=== PATIENT | female | born 1950 | race Caucasian/White ===

== ENCOUNTER → 2020-11-14 14:57 | Outpatient (CLI) | payer MEDICARE, SELFPAY ==
--- NOTE | 2020-11-14 15:04 | DI.RAD.S_ITS ---
PROCEDURE: XR LUMBAR SPINE MIN 4V COMPARISON: None. INDICATIONS: ACUTE LOW BACK PAIN FINDINGS: AP, lateral, and bilateral oblique views of the lumbar spine were performed. There is multilevel lumbar spondylosis. The aorta has atherosclerotic calcifications. The lower lumbar spine has facet arthrosis there is no vertebral body height loss. There is rightward curvature of the lumbar spine. T12-L1, L1-2, and L2-3 have mild disc space narrowing and endplate degenerative changes. IMPRESSION: 1. No acute abnormality of the lumbar spine. 2. Multilevel lumbar spondylosis. 3. Multilevel lumbar disc disease. Dictated by: Houston Brooks M.D. on 11/14/2020 at 15:41 Approved by: Houston Brooks M.D. on 11/14/2020 at 15:43
== END ==
PROVIDERS: Referring Provider Chiropractor; Visit Provider Chiropractor
DX: M47.896 Other spondylosis, lumbar region (principal); M51.36 Other intervertebral disc degeneration, lumbar region
CPT/HCPCS: 72110